=== PATIENT | female | born 1985 | race Caucasian/White ===

== ENCOUNTER 2019-07-08 14:32 | Emergency (ER) | payer OTHER ==
[~2019-07-08] VITALS: Ht 162.6 cm; Wt 50.3 kg
[2019-07-08] MEDS ORDERED: MORPHINE SULFATE 4 MG/ML VIAL. IV ONE ×2 (14:45→15:45)
[2019-07-08] MEDS ORDERED: ONDANSETRON PF 4 MG/2 ML VIAL. IVP ONE (14:45)
--- NOTE | 2019-07-08 15:21 | RAD ---
Two-view left wrist HISTORY: Pain status post injury Limited 2 view AP lateral views There is a transverse fracture of the distal radius with quarter shaft width lateral displacement and half shaft width posterior space with posterior angulation. There is avulsion of the ulnar styloid. IMPRESSION: Acute traumatic fracture of the distal left wrist. Electronically signed by: Elmo Boo III, MD (07/08/2019 3:19 PM) [facility]
--- NOTE | 2019-07-08 15:26 | PHYS DOC ---
Past Medical History Past Medical History: No Pertinent History (ALLI BOSCH APRN) Past Surgical History: No Surgical History (ALLI BOSCH APRN) Adult General Chief Complaint Chief Complaint: WRIST PAIN [facility] HPI Patient is a 34 year old female who presents with left wrist pain, she was at home, fell off a bed and felt a pop in her left wrist, deformity and severe pain since. Occurred around 1 pm. Family was at , she was home alone with infant. Breast feeding. She is right handed. No other injury or trauma. She is tearful (ALLI BOSCH APRN) Review of Systems Review of Systems Constitutional: Denies fever or chills [] Eyes: Denies change in visual acuity, redness, or eye pain [] HENT: Denies nasal congestion or sore throat [] Respiratory: Denies cough or shortness of breath [] Cardiovascular: No additional information not addressed in HPI [] GI: Denies abdominal pain, nausea, vomiting, bloody stools or diarrhea [] Musculoskeletal: Denies back pain. Left wrist pain, swelling Integument: Denies rash or skin lesions [] Neurologic: Denies headache, focal weakness or sensory changes [] Endocrine: Denies polyuria or polydipsia [] All other systems were reviewed and found to be within normal limits, except as documented in this note. (ALLI BOSCH APRN) Current Medications Current Medications Current Medications Medications (Trade) Dose Ordered Sig/Vinay Start Time Stop Time Status Last Admin Dose Admin Fentanyl Citrate (Fentanyl 2ml Vial) 100 mcg STK-MED ONCE 07/08/19 17:10 07/08/19 17:10 DC Ketamine HCl (Ketamine) 500 mg STK-MED ONCE 07/08/19 17:00 07/08/19 17:00 DC Lidocaine HCl 20 ml 1X ONCE 07/08/19 15:45 07/08/19 15:46 DC 07/08/19 17:28 20 ML Morphine Sulfate (Morphine Sulfate) 4 mg 1X ONCE 07/08/19 15:45 07/08/19 15:46 DC 07/08/19 14:06 4 MG Ondansetron HCl (Zofran) 4 mg 1X ONCE 07/08/19 14:45 07/08/19 14:59 DC 07/08/19 14:06 4 MG Propofol (Diprivan) 200 mg 1X ONCE 07/08/19 16:15 07/08/19 16:16 DC 07/08/19 17:29 200 MG (JASMINE BARBOUR MD) Allergies Allergies Allergies Coded Allergies Type Severity Reaction Last Updated Verified No Known Drug Allergies 07/08/19 No (JASMINE BARBOUR MD) Physical Exam Physical Exam Constitutional: Well developed, well nourished, no acute distress, non-toxic a ppearance. [] HENT: Normocephalic, atraumatic, bilateral external ears normal, oropharynx moist, no oral exudates, nose normal. [] Eyes: PERRLA, EOMI, conjunctiva normal, no discharge. [] Neck: Normal range of motion, no tenderness, supple, no stridor. [] Cardiovascular:Heart rate regular rhythm, no murmur [] Lungs & Thorax: Bilateral breath sounds clear to auscultation [] Abdomen: Bowel sounds normal, soft, no tenderness, no masses, no pulsatile masses. [] Skin: Warm, dry, no erythema, no rash. [] Extremities: obvious swelling and posterior deformity to the left wrist, intact pulses and distal cap refill, no wounds, limited ROM due to pain Neurologic: Alert and oriented X 3, normal motor function, normal sensory function, no focal deficits noted. [] Psychologic: Affect normal, judgement normal, mood normal. [] (ALLI BOSCH APRN) Current Patient Data Vital Signs Vital Signs Date Time Temp Pulse Resp B/P (MAP) Pulse Ox O2 Delivery O2 Flow Rate FiO2 07/08/19 15:22 18 95 Room Air 07/08/19 14:52 99.0 80 141/90 (107) 99.0 (JASMINE BARBOUR MD) EKG EKG [] (ALLI BOSCH APRN) Radiology/Procedures Radiology/Procedures []Signed PATIENT: XOCHITL CONROY ACCOUNT: [id number] : 1985 LOCATION: ER AGE: 34 SEX: F EXAM STATUS: REG ER ORD. PHYSICIAN: ALLI BOSCH APRN REASON: trauma,pt fell off bed, deformity. PROCEDURE: WRIST 2V LEFT Two-view left wrist HISTORY: Pain status post injury Limited 2 view AP lateral views There is a transverse fracture of the distal radius with quarter shaft width lateral displacement and half shaft width posterior space with posterior angulation. There is avulsion of the ulnar styloid. IMPRESSION: Acute traumatic fracture of the distal left wrist. Electronically signed by: Archie Stewart III, MD (07/08/2019 3:19 PM) [id number] DICTATED and SIGNED BY: ARCHIE STEWART III, MD DATE: 07/08/19 1511 repeat xray, post reduction, improved alignment OCL and sling, NV intact (ALLI BOSCH APRN) Impressions: Left distal radius and ulnar fracture, acute, closed (ALLI BOSCH APRN) Course & Med Decision Making Course & Med Decision Making Pertinent Labs and Imaging studies reviewed. 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 Patient was awake and talking throughout that entire time so I then subsequently switched to ketamine was given a total of 125 mg of ketamine with adequate sedation at that time patient had transient apnea that lasted less than 30 seconds saturation went to about 89 she was monitored aggressively throughout this and began breathing easily with no [id number] just transient drop thrust that lasted about 10 seconds. She was on continuous pulse ox and end-tidal CO2 throughout this. I then proceeded to engage in a manual reduction after sterile technique I did place a 6 mL amount of 2% lidocaine in a hematoma block and then I did manual traction and usual reduction we placed a sugar tong splint I was present during the entire placement of the procedure patient is neurovascularly intact after the procedure check that again she was doing better with improved pain post reduction x-ray showed look like improved alignment as well. I did speak in detail with Dr. CEVALLOS who said to call office at 9:30 AM make nothing by mouth after midnight he may not be able to fit on schedule but will try his best I alerted this plan to the patient she is from [place] she wants to get the surgery done if at all possible and he was nice enough to try to schedule her she was instructed to call tomorrow and she will do so pain perception was provided patient was discharged in stable condition by the nurse practitioner on duty (JASMINE BARBOUR MD) Dragon Disclaimer Dragon Disclaimer This electronic medical record was generated, in whole or in part, using a voice recognition dictation system. (ALLI BOSCH APRN) Departure Departure Impression: Primary Impression: Closed left radial fracture Disposition: HOME, SELF-CARE Condition: STABLE Referrals: NO PCP (PCP) Scripts Ondansetron Hcl (ZOFRAN) 4 Mg Tablet 1 TAB PO Q6HRS, #20 TAB Prov: ALLI BOSCH APRN 07/08/19 Hydrocodone/Apap 5-325 (NORCO 5-325 TABLET) 1 Each Tablet 1-2 TAB PO Q4-6HRS, #10 TAB Prov: ALLI BOSCH APRN 07/08/19 MODERATE SEDATION ASSESSMENT RISKS/ALTERNATIVES Risks/Alternatives Risks and alternatives of this type of sedation and procedure discussed with: RISK/ALTERNATIVES: Patient (JASMINE BARBOUR MD) Risks/Alternatives Risks and alternatives of this type of sedation and procedure discussed with: (ALLI BOSCH APRN) H & P ON CHART H & P H & P on chart and reviewed for co-morbid conditions and appropriate labs. H&P ON CHART: Yes (JASMINE BARBOUR MD) H & P H & P on chart and reviewed for co-morbid conditions and appropriate labs. (ALLI BOSCH APRN) STATUS PREG STATUS ASSESSED: Yes (JASMINE BARBOUR MD) MEDS/ALLERGIES REVIEWED Meds/Allergies Reviewed Medications and Allergies including time and route of recently administered narcotics and sedatives. MEDS/ALLERGIES REVIEWED: Yes (JASMINE BARBOUR MD) Meds/Allergies Reviewed Medications and Allergies including time and route of recently administered narcotics and sedatives. (ALLI BOSCH APRN) ASA RATING ASA RATING: I (JASMINE BARBOUR MD) AIRWAY ASSESSMENT Airway Assessment Airway patency, oral function limitations, presence of caps, crowns, dentures, partials, and ability to extend neck assessed. AIRWAY ASSESSMENT: Yes (JASMINE BABROUR MD) Airway Assessment Airway patency, oral function limitations, presence of caps, crowns, dentures, partials, and ability to extend neck assessed. (ALLI BOSCH APRN) MALLAMPATI SCORE MALLAMPATI SCORE: I (JASMINE BARBOUR MD) PRE-SEDATION ASSESSMENT PRE-SEDATION ASSESSMENT: Yes (JASMINE BARBOUR MD) ALLI BOSCH APRN Jul 08, 2019 15:26 JASMINE BARBOUR MD Jul 08, 2019 17:59
[2019-07-08] MEDS ORDERED: LIDOCAINE 2% 20 ML VIAL. IJ ONE (15:45)
[2019-07-08] MEDS ORDERED: PROPOFOL 10 MG/ML (20ML) VIAL. IV ONE (16:15)
[2019-07-08 16:45] VITALS: BP 155/88
[2019-07-08] MEDS ORDERED: KETAMINE HCL 500 MG/10 ML VIAL. ONE (17:00)
[2019-07-08] MEDS ORDERED: fentaNYL PF VIAL 100 MCG/2 ML VIAL ONE (17:10)
[2019-07-08] MEDS ORDERED: HYDR-3164 PO (17:24)
[2019-07-08 18:00] VITALS: BP 135/89
[2019-07-08] MEDS ORDERED: ONDA4TAB7 PO (18:05)
[2019-07-08] MEDS ORDERED: IV NORMAL SALINE 1000ML BAG 1,000 ML IV ONE (20:15)
--- NOTE | 2019-07-09 08:03 | RAD ---
Examination: WRIST 3V LEFT History: Wrist fracture postreduction Comparison/Correlation: 07/08/2019 two-view left wrist x-ray Findings: 3 images of the left wrist were obtained. Overlying cast material is present. True lateral view was not provided and this limits assessment. Partial reduction of the distal radial displaced transverse fractures noted. Ventral angulation still is suspected. Partial reduction of the distal ulnar styloid fracture is also seen. Carpal bones are grossly unremarkable. Impression: Partial reduction of distal radial and ulnar styloid fractures. Electronically signed by: Raphael Garland MD (07/09/2019 8:00 AM) [facility]
== END 2019-07-08 18:15 | disposition home or self-care (01) ==
LOC: ER 14:32
DX: S52.502A Unspecified fracture of the lower end of left radius, initial encounter for closed fracture (principal); S52.612A Displaced fracture of left ulna styloid process, initial encounter for closed fracture; W06.XXXA Fall from bed, initial encounter; Y93.89 Activity, other specified; Y92.89 Other specified places as the place of occurrence of the external cause; Y99.8 Other external cause status
CPT/HCPCS: 25605; 73100; 73110; 96374; 96375; 96376; 99285; J2001; J2270; J2405; J2704; J7030; 99152; 99153